=== PATIENT | male | born 1980 | race Caucasian/White ===

== ENCOUNTER 2020-10-03 19:24 | Outpatient (REF) | payer BC, SELFPAY ==
[2020-10-03 23:14] LABS: ALT 40 U/L (16-63); AST 19 U/L (15-37); Calculated LDL 154 mg/dL (<100); Cholesterol 247 mg/dL (<200); HDL Cholesterol 74 mg/dL (40-60); Triglyceride 99 mg/dL (<150)
[2020-10-05 10:10] LABS: Hepatitis C Ab w Rflx HCV PCR Negative (Negative)
[2020-10-05 11:15] LABS: HIV-1/2 Ag & Ab Screen Negative (Negative)
== END 2020-10-03 19:44 ==
LOC: NCHCN 19:24
PROVIDERS: Visit Provider Nurse Practitioner Family
DX: Z00.00 Encounter for general adult medical examination without abnormal findings (principal); Z13.220 Encounter for screening for lipoid disorders; Z11.4 Encounter for screening for human immunodeficiency virus [HIV]; Z11.59 Encounter for screening for other viral diseases
CPT/HCPCS: 80061; 86803; 87389; 84450; 84460

== ENCOUNTER 2020-11-23 01:59 | Outpatient (CLI) | payer BC, SELFPAY ==
[2020-11-24 11:31] LABS: COVID-19 RT-PCR UVMMC Result Negative (Negative)
== END 2020-11-23 02:00 | disposition home or self-care (01) ==
LOC: LBO 01:59
PROVIDERS: PCP Nurse Practitioner Family; Visit Provider Surgery
DX: Z20.822 Contact with and (suspected) exposure to COVID-19 (principal); Z01.818 Encounter for other preprocedural examination
CPT/HCPCS: U0003

== ENCOUNTER 2020-11-27 06:20 | Day surgery (SDC) | payer BC, SELFPAY ==
[2020-11-27 06:29] VITALS: BP 150/87; PULSE 71; RESP 16; TEMP 36.5; O2SAT 98
[2020-11-27] MEDS: Lactated Ringers 1,000 ML 80 ML IV (06:47)
[2020-11-27] MEDS: ceFAZolin 2 GM/50 ML BAG IVPB (07:46)
[2020-11-27] MEDS: Bupivacaine 0.25% Pres-Free 30 ML VIAL (07:59)
--- NOTE | 2020-11-27 08:44 | W.PM.OP ---
Date of service: 11/27/20 Time of Service: 08:44 Operative Note Operative Note DATE OF PROCEDURE: 11/27/20 PRE-OP DIAGNOSIS: umbilical hernia POST-OP DIAGNOSIS: same PROCEDURE: open repiar w/ mesh - see RN notes SURGEON: Rafia Borrego AERODYNAMIC CONSULTANT: Annemarie Mooney ANESTHESIA: MAC and local ESTIMATED BLOOD LOSS: 3 PATHOLOGY: none sent Patient was transported to: same day Implants: medium mesh implants - see RN notes Procedure Description: PREOPERATIVE DIAGNOSIS: Umbilical hernia. POSTOPERATIVE DIAGNOSIS: Umbilical hernia. PROCEDURE: Open repair with mesh. SURGEON: Rafia Borrego DO ANESTHESIA: MAC. ESTIMATED BLOOD LOSS: Less than 5 mL. COMPLICATIONS: The patient tolerated the procedure well without complications. INDICATIONS: The patient has symptomatic umbilical hernia, that has failed outpatient conservative medical measures, and is here today for repair. Informed consent was obtained, explaining risks and benefits of the procedure including but not limited to bleeding, infection, pneumonia, blood clots, recurrence, chronic pain, chronic numbness, reaction to mesh necessitating removal, complications of anesthesia and other unforetold complications. DESCRIPTION OF PROCEDURE: The patient was brought to the operating suite and placed in supine position. Anesthesia was administered per the Department of Anesthesia. Patient prepped and draped in the usual sterile fashion using DuraPrep scrub solution. IV antibiotics were administered. Pause for the cause was done. A 1-inch incision was made in the inferiorly to the umbilicus. Umbilicus was dissected off the fascia. The fascia was dissected off from surrounding tissue. There is omentum portruding. This was returned to the abdomen. It is not infarcted. A medium Ventralex hernia patch was then placed in the defect (please see Rn notes for lot number), and the defect was closed, oversewn with 2-0 vicryl, and was copiously irrigated. Deep tissue was approximated with 3-0 Vicryl and skin was approximated with 4-0 Monocryl in a running subcuticular fashion. Steri tape and sterile dressings are applied. The patient tolerated the procedure well without complications and was transferred to recovery room in stable condition. RAFIA BORREGO DO
--- NOTE | 2020-11-27 08:46 | W.PM.DSUDISC ---
Discharge Plan Disposition Patient Disposition: HOME Condition: Good Discharge Details Reason For Visit: hernia repair Attending Provider: Rafia Tucker Primary Care Provider: Nita Juarez Home Meds and New Rx's Prescriptions: New tramadol [Ultram] 50 mg tablet 50 mg PO Q6H PRNQty: 7 RF: 0 ibuprofen 600 mg tablet 600 mg PO Q6H PRNQty: 90 RF: 4 Discharge Instructions Additional Instructions: Dr. Tucker HERNIA REPAIR ? POSTOPERATIVE INSTRUCTIONS Patients who have this type of surgery can usually be expected to return to work within two weeks and have minimal amounts of discomfort. ? ACTIVITY: The day of surgery should be spent resting. However, you can be up for short periods of time, I.E., going to the bathroom or kitchen. Avoid lifting or straining. On the day following surgery, you can be up and about as desired. ? LIFTING: Restrict your lifting to no more than five (5) pounds for the first week following surgery. For the second week after surgery, don?t lift more than ten pounds. We will decide when you are done with restrictions and when you can return to work, at your follow-up appointment. No sexual activity for two weeks. ? DIET: There are no dietary restrictions following surgery. However, you may want to start with small amounts of liquids to avoid nausea the day of surgery. ? INCISION CARE: You will notice purple skin glue closing the incision. Do not peel this off- it will wear off on its own. After 24 hours you may shower. The dressing may be replaced for comfort, but is not necessary. An ice bag may be applied to the incision for 72 hours following surgery. ? SIGNS OF INFECTION: It is not unusual to have some black and blue discoloration of the skin around the incision, but also scrotum and penis. It will slowly disappear. If you have any increased redness, drainage, fever (above 100 degrees), please contact your doctor for an examination. ? DISCOMFORT: You may expect to have some mild discomfort at the incision sight. If severe pain develops you should contact your doctor for further instructions. ? URINATION: Patients who have surgery occasionally have problems urinating. If you experience problems and are not able to urinate within 6 hours following your surgery, please call your doctor immediately or go to your nearest Emergency Room for evaluation. ? DRIVING: NO driving for three (3) days after surgery or if you are still taking narcotic pain medication. ? MEDICATIONS: Alternate Tylenol 1000mg by mouth every 8hours and Ibuprofen 600mg every 6hours-make sure you take w/ food and not on an empty stomach. Take the Tylenol and ibuprofen continuously for the first 72hrs- not just when you have pain. Use the tramadol for breakthrough pain. Use ICE! Twenty minutes on, and then off, continuously for the first 72hours. If you are taking narcotic pain medication, follow the instructions on the label and do not drive. Pain medications can make you very constipated. Make sure you are moving your bowels daily. If not, take Miralax, milk of magnesia or magnesium citrate. Anesthesia makes you very constipated. Take a dose of milk of magnesia the morning after surgery. ? REPORT: Unusual swelling, severe pain, unresolved nausea, signs of infection, or difficulty in urination to your surgeon. Follow up in clinic with Dr. Tucker in 2 weeks. [phone] Activity:: see above Shower/Bathe:: 24 hours Diet:: small light meals for the first 24 hrs Discharge Orders Discharge Orders: Discharge Order (Routine); Ordered 11/27/20 Ordered By: Rafia Tucker DS: Diagnosis Discharge Diagnosis (1) Umbilical hernia: Status: Acute
[2020-11-27 09:12] VITALS: BP 112/65; PULSE 50; RESP 16; TEMP 36.4; O2SAT 96
== END 2020-11-27 10:15 | disposition home or self-care (01) ==
PROVIDERS: PCP Nurse Practitioner Family; Visit Provider Surgery
PROC: (CPT 49585; principal; 2020-11-27 07:30)
DX: K42.9 Umbilical hernia without obstruction or gangrene (principal)
CPT/HCPCS: 49585; C1781; J0690; J1885; J2001; J2405; J2704

== ENCOUNTER 2021-12-18 15:02 | Outpatient (CLI) | payer BC, SELFPAY ==
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
== END 2021-12-18 15:22 ==
PROVIDERS: PCP Nurse Practitioner Family; Visit Provider Physician Assistant Medical
DX: M79.644 Pain in right finger(s) (principal)
CPT/HCPCS: 73140

== ENCOUNTER 2023-01-09 01:47 | Outpatient (CLI) | payer BC, SELFPAY ==
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
== END 2023-01-09 02:07 ==
LOC: DI 01:48
PROVIDERS: PCP Nurse Practitioner Family; Visit Provider Family Medicine
DX: M25.562 Pain in left knee (principal); M25.462 Effusion, left knee
CPT/HCPCS: 73562

== ENCOUNTER 2025-03-17 16:46 | Outpatient (REF) | payer OTHER, SELFPAY ==
[2025-03-17 21:56] LABS: HCT 43.7 % (40.0-50.0); HGB 15.1 g/dL (13.5-17.5); MCH 30.4 pg (27.0-33.0); MCHC 34.6 % (32.0-36.0); MCV 88 fL (80-95); MPV 11.4 fL (8.0-11.0); Platelet Count 226 10^3/uL (130-400); RBC 4.97 10^6/uL (4.36-5.78); RDW 12.3 % (11.8-14.1); RDW-SD 39.2 fL; WBC 5.76 10^3/uL (4.4-10.8)
[2025-03-17 22:10] LABS: ALT 32 U/L (16-63); AST 23 U/L (15-37); Albumin 4.3 g/dL (3.4-5.0); Alkaline Phosphatase 49 U/L (46-116); BUN 18 mg/dL (7-18); Bilirubin, Total 0.7 mg/dL (0.2-1.0); CREATININE 0.8 mg/dL (0.70-1.30); Calcium 9.2 mg/dL (8.5-10.1); Calculated LDL 115 mg/dL (<100); Chloride 104 mmol/L (98-107); Cholesterol 209 mg/dL (<200); Estimated GFR 111.22 (mL/min/1.73m2); Glucose 96 mg/dL (74-106); HDL Cholesterol 68 mg/dL (>or=40); Potassium 4.1 mmol/L (3.5-5.1); Sodium 140 mmol/L (136-145); Total Protein 7.3 g/dL (6.4-8.2); Triglyceride 133 mg/dL (<150)
== END 2025-03-17 16:47 | disposition home or self-care (01) ==
LOC: NCHCN 16:46
PROVIDERS: PCP Nurse Practitioner Family; Visit Provider Nurse Practitioner Family
DX: Z00.00 Encounter for general adult medical examination without abnormal findings (principal)
CPT/HCPCS: 80053; 80061; 85027